=== PATIENT | male | born 1945 | race Caucasian/White ===

== ENCOUNTER → 2018-04-17 | Outpatient (CLI) | payer OTHER ==
[~2018-04-17] VITALS: Ht 188 cm; Wt 93.0 kg
[~2018-04-17] MED LIST: CENTRUM SILVER1 EAC2 PO; LIPITOR 20 MG T20 M1 PO; METFORMIN HCL500 MG PO; PLAVIX 75 MG TA75 M1 PO; SYNTHROID125 MC1 PO
[2018-04-17 07:34] LABS: HEMATOCRIT 44.4 % (42.0-52.0); HEMOGLOBIN 15.9 gm/dL (14.0-18.0); MCHC 35.9 g/dL (28.0-37.0); MCV 86.3 fL (80.0-100.0); RBC 5.14 mil/uL (4.50-6.00); RDW 14.8 % (10.5-14.5); WBC 9.7 thou/uL (4.0-11.0)
[2018-04-17 07:44] VITALS: BP 113/85
[2018-04-17 07:48] LABS: CREATININE 1.1 mg/dL (0.7-1.3); POTASSIUM 3.8 mmol/L (3.5-5.1)
--- NOTE | 2018-04-17 08:26 | EKG ---
[place] [address] [facility] [place] [address] ELECTROCARDIOGRAM REPORT Name: MARIA INESGISELLEADRIAN Room #: [facility] CenterD[facility] [id number] Admission: 04/17/18 Attend Phys: Refugio Porter MD, Discharge: Date of : 41 Report #: [id number] THIS REPORT FOR: //name// [facility] Test Date: 2018-04-17 Test Time: 07:23:55 Pat Name: ADRIAN ZHOU Department: Room: Gender: Homicide Detective: Kierra DANGELO : 1945 Requested By: Refugio Porter Order Number: [id number] MD: Chase Harvey Measurements Intervals [place] Rate: 71 P: 12 FL: 197 QRS: -71 QRSD: 103 T: 61 QT: 397 QTc: 432 Interpretive Statements Sinus rhythm Left anterior fascicular block Borderline low voltage, extremity leads Abnormal R-wave progression, late transition No previous ECG available for comparison Electronically Signed On 04-17-2018 8:25:58 SHEETING PULLER by Chase Harvey [email or web address] <ELECTRONICALLY SIGNED> By: Chase Harvey MD 04/17/18824 2 2 Chase Harvey MD /LEANNE
--- NOTE | 2018-04-19 11:36 | CATHLAB ---
[facility] [address] [place] [address] INVASIVE PROCEDURE REPORT Name: ADRIAN ZHOU Room #: REG Kate#: [id number] Admission: 04/17/18 Attend Phys: Refugio Porter, Discharge: Date of : 41 Date of Service: 04/19/18 1135 Report #: [id number] THIS REPORT FOR: //name// APPROVED REPORT Study performed: 04/17/2018 08:49:41 Patient Details Patient Status: Out-Patient Room #: The patient is a 73 year-old male Event Personnel Refugio Porter Housekeeping Department Worker, Leonid Monroy Mahmood, Amber Monitor, Jodie Dumont RN machine candle molder Performed Art Access - R femoral artery* Per Access - R femoral vein 84806 Initial Mod Sed Same Phys/QHP Gr5y [id number] 50776 Mod Sed Same Phys/QHP Ea 845536 Right and Left Heart Cath w/or w/o Coronarie [id number] [facility] Aortogram Abdominal Peripheral Angio 818812 Hemostasis w/ Mynx Indication Positive stress test Procedure Narrative The patient was brought electively to the Cardiac Catheterization Laboratory and was prepped and draped in a sterile manner. The Right Groin^ was infiltrated with 1% Lidocaine subcutaneous anesthesia. A Right Heart Catheterization was performed with a 7 Fr. [place]-Yaneth catheter and pressure were recorded. Cardiac outputs were obtained by the Thermal Dilution method. A PINNACLE 6FR Sheath #[id number] sheath was inserted into the RFA^. Coronary angiography was performed using coronary diagnostic catheters. The right coronary system was accessed and visualized with a JR 44 catheter. The left coronary system was accessed and visualized with a JL 4 catheter. The left ventricle was accessed and visualized with a Pigtail catheter. Left ventriculogram was performed in TILLEY projection. An aortogram of the abdominal aorta was performed. Pre-demployment femoral angiogram was performed . Closure device was deployed with a 6 Fr Mynx. Hemostasis was obtained with manual pressure following sheath removal without any complications. The patient tolerated the procedure well and there were no complications associated with the procedure. There was no hematoma. [address] [address] INVASIVE PROCEDURE REPORT Name: RADHAGISELLEADRIAN FELIX Room #: REG JOSE RAFAEL Love#: [id number] Admission: 04/17/18 Attend Phys: Refugio Porter, Discharge: Date of : 41 Date of Service: 04/19/18 1135 Report #: [id number] Intraoperative Conscious Sedation Sedation start time: 09:22 Case end Time: 09:54 Fentanyl 50 mcg Versed 1 mg Fluoro Time: 2.25 minutes Dose: DAP 3967.00 cGycm2 427 mGy Contrast Type and Amount: Omnipaque 110 ml Hemodynamics The right atrial mean pressure is 14 mmHg. The right ventricular pressure is 49/7 mmHg. The pulmonary artery pressure is 39/25 mmHg with a mean of 29 mmHg. The mean pulmonary capillary wedge pressure is 17 mmHg. The aortic pressure is 140/70 mmHg with a mean of 99 mmHg. The left ventricular pressure is 143/7 mmHg with a mean of mmHg. The cardiac output using thermo method is 4.85 L/min. The cardiac index using thermo method is 2.21 L/min/m2. 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 Mid vessel lesion of 60-70% which is not progressed mild disease in the distal LAD diagonal system. 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 Recommendations and plan: Continue aggressive risk factor modification. We will follow this LAD lesion which is not showed significant progression the last 3 years. Follow-up will be arranged. <ELECTRONICALLY SIGNED> By: Refugio Porter MD, FACC 04/19/18 1135 1135 1135 Refugio Porter MD, FACC /INF
== END | disposition home or self-care (01) ==
LOC: CATH 06:58
PROVIDERS: Internal Medicine Cardiovascular Disease
DX: I25.10 Atherosclerotic heart disease of native coronary artery without angina pectoris (principal); I10 Essential (primary) hypertension; E78.5 Hyperlipidemia, unspecified; I73.89 Other specified peripheral vascular diseases; J44.9 Chronic obstructive pulmonary disease, unspecified; Z86.73 Personal history of transient ischemic attack (TIA), and cerebral infarction without residual deficits; Z87.891 Personal history of nicotine dependence; Z98.890 Other specified postprocedural states; Z85.46 Personal history of malignant neoplasm of prostate; Z79.899 Other long term (current) drug therapy

== ENCOUNTER → 2019-07-29 | Outpatient (CLI) | payer OTHER | LOC: SJCVCIMAG 08:02 | DX: I65.23 Occlusion and stenosis of bilateral carotid arteries (principal); R94.31 Abnormal electrocardiogram [ECG] [EKG]; I44.0 Atrioventricular block, first degree; I73.9 Peripheral vascular disease, unspecified; I25.10 Atherosclerotic heart disease of native coronary artery without angina pectoris; I10 Essential (primary) hypertension; E78.00 Pure hypercholesterolemia, unspecified; E11.9 Type 2 diabetes mellitus without complications; J44.9 Chronic obstructive pulmonary disease, unspecified; Z79.899 Other long term (current) drug therapy; Z87.891 Personal history of nicotine dependence ==

== ENCOUNTER → 2019-12-30 | Outpatient (CLI) | payer OTHER | LOC: SJCVCIMAG 07:43 → SJCVC 08:29 | PROVIDERS: ATTEND Internal Medicine Cardiovascular Disease | DX: I25.10 Atherosclerotic heart disease of native coronary artery without angina pectoris (principal); I49.3 Ventricular premature depolarization; I73.9 Peripheral vascular disease, unspecified; Z79.899 Other long term (current) drug therapy ==

== ENCOUNTER → 2020-05-19 | Outpatient (CLI) | payer OTHER | LOC: SJCVC 10:44 | PROVIDERS: ATTEND Internal Medicine Cardiovascular Disease | DX: R94.31 Abnormal electrocardiogram [ECG] [EKG] (principal); I25.10 Atherosclerotic heart disease of native coronary artery without angina pectoris; I10 Essential (primary) hypertension; E78.00 Pure hypercholesterolemia, unspecified; I73.9 Peripheral vascular disease, unspecified; I65.23 Occlusion and stenosis of bilateral carotid arteries; Z86.73 Personal history of transient ischemic attack (TIA), and cerebral infarction without residual deficits; Z87.891 Personal history of nicotine dependence; Z79.82 Long term (current) use of aspirin; Z79.84 Long term (current) use of oral hypoglycemic drugs; Z79.899 Other long term (current) drug therapy; Z82.49 Family history of ischemic heart disease and other diseases of the circulatory system ==